=== PATIENT | female | born 1995 | race Two or more races ===

== ENCOUNTER 2019-03-10 23:31 | Emergency (ER) | payer OTHER ==
[2019-03-11 00:45] LABS: Urine Appearance Clear; Urine Bacteria 1+ (Absent); Urine Bilirubin Negative (Negative); Urine Blood 3+ (Negative); Urine Glucose 1+(50 mg/dL) (Negative); Urine Ketones Negative (Negative); Urine Nitrite Negative (Negative); Urine Protein 2+(100 mg/dL) (Negative); Urine Red Blood Cell 3+(>10/hpf) (Absent); Urine Specific Gravity 1.003 (1.010-1.030); Urine Squamous Epithelial Cell Present (Absent); Urine Urobilinogen Negative (Negative); Urine White Blood Cell 3+(>20/hpf) (Absent)
[2019-03-11 00:46] LABS: Urine Color Red
[2019-03-11] MEDS ORDERED: Ciprofloxacin TAB* 500 MG PO ONE (00:48)
--- NOTE | 2019-03-11 00:48 | ED ---
GI/ HPI - HPI Summary HPI Summary: 24-year-old female presents with dysuria today. She states her symptoms started at 8:00pm. She denies any fever. no abdominal pain. No flank pain. No vomiting or nausea. She denies any abnormal vaginal discharge. She has no medical conditions. - History of Current Complaint Chief Complaint: EDUrogenitalProblems Time Seen by Provider: 03/11/19 00:30 Stated Complaint: "POS UTI" PER PT Pain Intensity: 7 - Allergy/Home Medications Allergies/Adverse Reactions: Allergies Allergy/AdvReac Type Severity Reaction Status Date / Time Penicillins Allergy Hives Verified 03/10/19 23:36 PMH/Surg Hx/FS Hx/Imm Hx Endocrine/Hematology History: Denies: Hx Anticoagulant Therapy Respiratory History: Denies: Hx Asthma Infectious Disease History: No Infectious Disease History: Denies: Traveled Outside the [place] in Last 30 Days - Family History Known Family History: Negative: Renal Disease - Social History Alcohol Use: None Substance Use Type: Reports: None Smoking Status (MU): Never Smoked Tobacco Review of Systems Negative: Fever Negative: Chest Pain Negative: Shortness Of Breath Negative: Abdominal Pain Positive: dysuria, urgency. Negative: flank pain All Other Systems Reviewed And Are Negative: Yes Physical Exam Triage Information Reviewed: Yes Vital Signs On Initial Exam: Initial Vitals Temp Pulse Resp BP Pulse Ox 98.6 F 100 16 147/96 99 03/10/19 23:35 03/10/19 23:35 03/10/19 23:35 03/10/19 23:35 03/10/19 23:35 Vital Signs Reviewed: Yes Appearance: Positive: Well-Appearing Skin: Positive: Warm, Dry Head/Face: Positive: Normal Head/Face Inspection Eyes: Positive: Normal, Conjunctiva Clear ENT: Positive: Pharynx normal Respiratory/Lung Sounds: Positive: Clear to Auscultation, Breath Sounds Present Cardiovascular: Positive: Normal, RRR Abdomen Description: Positive: Nontender, Soft. Negative: CVA Tenderness (R), CVA Tenderness (L) Bowel Sounds: Positive: Present Musculoskeletal: Positive: Normal Neurological: Positive: Normal Psychiatric: Positive: Normal Diagnostics - Vital Signs Vital Signs Temp Pulse Resp BP Pulse Ox 03/10/19 23:35 98.6 F 100 16 147/96 99 - Laboratory Lab Results: Lab Results 04/16/19 Range/Units 00:05 Urine Color Pending Urine Appearance Clear Urine pH 7.0 (5-9) Ur Specific [place] 1.003 L (1.010-1.030) Urine Protein 2+(100 mg/dl) A (Negative) Urine Ketones Negative (Negative) Urine Blood 3+ A (Negative) Urine Nitrate Negative (Negative) Urine Bilirubin Negative (Negative) Urine Urobilinogen Negative (Negative) Ur Leukocyte Esterase 2+ A (Negative) Urine WBC (Auto) 3+(>20/hpf) A (Absent) Urine RBC (Auto) 3+(>10/hpf) A (Absent) Ur Squamous Epith Cells Present A (Absent) Urine Bacteria 1+ A (Absent) Urine Glucose 1+(50 mg/dl) A (Negative) Lab Statement: Any lab studies that have been ordered have been reviewed, and results considered in the medical decision making process. GIGU Course/Dx - Course Course Of Treatment: 24-year-old female presents with dysuria today. She states her symptoms started at 8:00pm. She denies any fever. No abd pain. No flank pain. No vomiting or nausea. She denies any abnormal vaginal discharge. She has no medical conditions. On exam nontender abdomen. Negative CVA tenderness. Afebrile. Urine shows a UTI. will treat with Cipro. Patient understands agrees with plan. - Diagnoses Differential Diagnoses - Female: STD, Urinary Tract Infection, Ureteral Calculi Provider Diagnoses: UTI (urinary tract infection) Discharge - Sign-Out/Discharge Documenting (check all that apply): Patient Departure Patient Received Moderate/Deep Sedation with Procedure: No - Discharge Plan Condition: Good Disposition: HOME Prescriptions: Ciprofloxacin TAB* [Cipro 500 MG TAB*] 500 mg PO BID #9 tab Patient Education Materials: Urinary Tract Infection in Women (ED) Referrals: No Primary Care Phys,NOPCP [Primary Care Provider] - Additional Instructions: Take Cipro twice a day for 5 days drink plenty of fluids take tyenlol or ibuprofen as needed for pain every 6 hours Follow up with primary within 5 days Return to ED if develop fever or any new or worsening symptoms - Billing Disposition and Condition Condition: GOOD Disposition: Home
[2019-03-11 01:07] VITALS: BP 124/79
== END 2019-03-11 01:06 | disposition home or self-care (01) ==
LOC: ED 23:31
DX: N39.0 Urinary tract infection, site not specified (principal); R30.0 Dysuria; Z88.0 Allergy status to penicillin
CPT/HCPCS: 81003; 81015; 87077; 87086; 87186; 99282; A9270-GY